=== PATIENT | female | born 1990 | race Caucasian/White ===

== ENCOUNTER 2021-04-06 08:24 | Outpatient (CLI) | payer BC ==
[2021-04-06 23:16] LABS: SARS-CoV-2 PCR by NAA Not Detected (NotDetected)
== END 2021-04-06 08:25 | disposition home or self-care (01) ==
LOC: CSHLAB 08:24
PROVIDERS: ATTEND Obstetrics & Gynecology
DX: Z01.812 Encounter for preprocedural laboratory examination (principal); Z20.822 Contact with and (suspected) exposure to COVID-19
CPT/HCPCS: U0003; U0005

== ENCOUNTER 2021-04-11 15:44 | Inpatient (IN) | payer BC ==
[~2021-04-11 15:44] MED LIST: Bupivacaine 0.25% HCL 30 ML VIAL ONE
[2021-04-11 21:22] VITALS: BMI 29.0
[2021-04-11] MEDS ORDERED: HYDROcodone/Acetaminophen 5/325 mg Tablet PO PRN ×2 (22:10)
[2021-04-11] MEDS ORDERED: Ibuprofen 800 MG TAB PO PRN (22:10)
[2021-04-11] MEDS ORDERED: Lidocaine 1% (PF) 30 ML VIAL SC PRN (22:10)
[2021-04-11] MEDS ORDERED: Lactated Ringer's 1,000 ML IV SCH (22:10)
[2021-04-11] MEDS ORDERED: Ondansetron PF 4 MG/2 ML Vial IVP PRN (22:10)
[2021-04-11] MEDS ORDERED: Acetaminophen 500 MG TAB PO PRN (22:10)
[2021-04-11] MEDS ORDERED: Butorphanol Tartrate 1 MG/ML VIAL SLOW IVP PRN (22:10)
[2021-04-11] MEDS ORDERED: NS w/ Oxytocin 30 units 500 ML IV SCH ×2 (22:10→22:30)
[2021-04-11] MEDS ORDERED: Zolpidem Tartrate 5 MG TAB PO PRN (22:10)
[2021-04-11] MEDS ORDERED: Docusate 100 MG CAP PO PRN (22:10)
[2021-04-11] MEDS ORDERED: Diphenoxylate HCl/Atropine Tablet PO PRN ×2 (22:10)
[2021-04-11] MEDS ORDERED: Promethazine HCl 25 MG/ML VIAL IM PRN (22:10)
[2021-04-11] MEDS ORDERED: hydrALAZINE 20 MG/ML VIAL SLOW IVP PRN (22:10)
[2021-04-11] MEDS ORDERED: Misoprostol 200 MCG TAB PR PRN (22:10)
[2021-04-11] MEDS ORDERED: Misoprostol 100 MCG TAB VAG SCH (22:30)
[2021-04-11] MEDS ORDERED: NS w/ Oxytocin 30 units 500 ML IVPB SCH (22:30)
[2021-04-11 22:42] LABS: Hemoglobin 10.9 g/dL (12.0-15.5); Mean Corpuscular HGB CONC 33.5 g/dL (32.0-36.0); Mean Corpuscular Hemoglobin 30.5 pg (27.0-33.0); Mean Platelet Volume 10.6 fl (7.4-10.4); Platelet Count 169 10x3/uL (150-450); RBC Distribution Width 13.8 % (11.5-14.5); Red Blood Cell (RBC) Count 3.57 10x6/uL (3.90-5.03); White Blood Cell (WBC) Count 5.4 10x3/uL (3.5-10.5)
[2021-04-11 23:31] LABS: HIV (1/2) Antibody/Antigen Non-Reactive (NonReactive); HIV 1/2 INDEX 0.07 S/CO (<1.00); Hep B Surf Ag Non-Reactive S/CO (NonReactive); Syphilis Antibody Nonreactive (Nonreactive); Syphilis Antibody Index 0.03 S/CO (<1.00 Non-Reactive)
[2021-04-11 23:44] LABS: HBSAg Index 0.18 S/CO (0-0.99)
[2021-04-12] MEDS ORDERED: Calcium Carbonate 500 MG ChewTAB PO PRN (00:14)
[2021-04-12] MEDS ORDERED: Fentanyl 2 mcg/Bup 0.1% Cadd 100 ML ONE (08:24)
[2021-04-12] MEDS ORDERED: Ondansetron PF 4 MG/2 ML Vial IVP PRN ×2 (09:31→18:25)
[2021-04-12] MEDS ORDERED: Promethazine HCl 25 MG/ML VIAL IM PRN (09:31)
[2021-04-12] MEDS ORDERED: diphenhydrAMINE 50 MG/ML VIAL IVP PRN (09:31)
[2021-04-12] MEDS ORDERED: Acetaminophen 325 MG TAB PO PRN (09:31)
[2021-04-12] MEDS ORDERED: Hydrocerin (Eucerin) Cream 120 gm Jar TOP PRN (09:31)
[2021-04-12] MEDS ORDERED: ePHEDrine Sulfate 50 MG/10 ML VIAL SLOW IVP PRN (09:31)
[2021-04-12] MEDS ORDERED: Lactated Ringer's 500 ML IV PRN (09:31)
[2021-04-12] MEDS ORDERED: Naloxone HCl 0.4 mg/ml Vial IVP PRN ×2 (09:31)
[2021-04-12] MEDS ORDERED: Communication Order-Pharmacy FS SCH (09:45)
[2021-04-12] MEDS ORDERED: Fentanyl 2 mcg/Bupivacaine 0.1% Cassette 100 ML EPIDURAL SCH (09:45)
[2021-04-12] MEDS ORDERED: Benzocaine-Menthol 82.5 ML CAN TOP PRN (18:25)
[2021-04-12] MEDS ORDERED: Milk Of Magnesia 30 ML UDCUP PO PRN (18:25)
[2021-04-12] MEDS ORDERED: diphenhydrAMINE 25 MG CAP PO PRN (18:25)
[2021-04-12] MEDS ORDERED: Lanolin Ointment 7 GM TUBE TOP PRN (18:25)
[2021-04-12] MEDS ORDERED: Misoprostol 200 MCG TAB VAG PRN (18:25)
[2021-04-12] MEDS ORDERED: hydrALAZINE 20 MG/ML VIAL SLOW IVP PRN (18:25)
[2021-04-12] MEDS ORDERED: Bisacodyl 10 MG SUPP PR PRN (18:25)
[2021-04-12] MEDS ORDERED: Zolpidem Tartrate 5 MG TAB PO PRN (18:25)
[2021-04-12] MEDS ORDERED: Acetaminophen/Codeine 30-300mg Tablet PO PRN ×2 (18:25)
[2021-04-12] MEDS ORDERED: Preparation H Ointment 28 GM TUBE PR PRN (18:25)
[2021-04-12] MEDS ORDERED: NS w/ Oxytocin 30 units 500 ML IV SCH (18:30)
[2021-04-12] MEDS: Docusate Calcium (SURFAK) 240 MG CAP PO SCH (23:06)
[2021-04-12] MEDS: Ibuprofen 800 MG TAB PO SCH (23:06)
[2021-04-13] MEDS: Ibuprofen 800 MG TAB PO SCH ×3 (06:54→21:12)
[2021-04-13] MEDS: Ferrous Sulfate 325 MG TAB PO SCH ×2 (08:19→17:44)
[2021-04-13] MEDS: Docusate Calcium (SURFAK) 240 MG CAP PO SCH ×2 (08:26→21:12)
[2021-04-13] MEDS: Prenatal Vitamin 1 TAB PO SCH (08:29)
[2021-04-13] MEDS ORDERED: Boostrix 0.5 ML (Tdap) VIAL IM ONE (18:25)
[2021-04-14] MEDS: Ibuprofen 800 MG TAB PO SCH (05:21)
[2021-04-14] MEDS: Ferrous Sulfate 325 MG TAB PO SCH (07:15)
[2021-04-14 07:54] VITALS: BP 111/76; TEMP 97.8
[2021-04-14] MEDS: Prenatal Vitamin 1 TAB PO SCH (08:14)
[2021-04-14] MEDS: Docusate Calcium (SURFAK) 240 MG CAP PO SCH (08:14)
== END 2021-04-14 11:10 | disposition home or self-care (01) | DRG 807 ==
LOC: CSHLD 19:45 → CSHPP 04-12 20:40
PROVIDERS: ADMIT Obstetrics & Gynecology; ATTEND Obstetrics & Gynecology
PROC: 10E0XZZ Delivery of Products of Conception, External Approach (ICD-10-PCS; principal; 2021-04-12)
PROC: 0KQM0ZZ Repair Perineum Muscle, Open Approach (ICD-10-PCS; 2021-04-12)
DX: O99.02 Anemia complicating childbirth (principal); Z37.0 Single live birth; Z3A.39 39 weeks gestation of pregnancy; Z20.822 Contact with and (suspected) exposure to COVID-19; D64.9 Anemia, unspecified; O70.1 Second degree perineal laceration during delivery
CPT/HCPCS: 36415; 85027; 86780; 86850; 86900; 86901; 87340; 87389; J2590; S0020

== ENCOUNTER 2024-02-05 10:35 | Outpatient (CLI) | payer BC | END 2024-02-05 10:36 | disposition home or self-care (01) | LOC: CSHMAMMO 10:35 | PROVIDERS: ATTEND Obstetrics & Gynecology | DX: Z12.31 Encounter for screening mammogram for malignant neoplasm of breast (principal); Z98.82 Breast implant status | CPT/HCPCS: 77067 ==